=== PATIENT | female | born 1990 ===

== ENCOUNTER 2020-08-26 14:49 | Outpatient (CLI) | payer OTHER ==
[~2020-08-26] VITALS: Ht 157.5 cm; Wt 65.9 kg
[2020-08-26 15:10] VITALS: BP 103/55
[2020-08-26 16:04] LABS: APPEARANCE, URINE CLEAR (CLEAR); BACTERIA, URINE AUTO NEGATIVE (NEGATIVE); BILIRUBIN, URINE AUTO NEGATIVE (NEGATIVE); BLOOD, URINE BLOOD NEGATIVE (NEGATIVE); COLOR, URINE YELLOW (YELLOW); GLUCOSE, URINE (UA) AUTO NEGATIVE (NEGATIVE); KETONE, URINE AUTO NEGATIVE (NEGATIVE); LEUKOCYTE ESTERASE, URINE AUTO NEGATIVE (NEGATIVE); MUCUS, URINE SMALL (NEGATIVE); NITRITE, URINE AUTO NEGATIVE (NEGATIVE); PROTEIN, URINE AUTO NEGATIVE (NEGATIVE); RBC, URINE AUTO 0 /HPF (0-3); SPECIFIC GRAVITY URINE AUTO 1.013 (1.002-1.035); SQUAMOUS EPITHELIAL CELL UR AU 4 /HPF (0-6); UROBILINOGEN, URINE AUTO 0.2 mg/dL (0.0-2.0); WBC, URINE AUTO 1 /HPF (0-3)
[2020-08-26] MEDS ORDERED: PRENTAB9 PO (16:11)
--- NOTE | 2020-08-26 20:48 | IPNPDOC ---
Text Note Date of Service The patient was seen on 08/26/20. NOTE Labor and Delivery Triage Note: S: 30yo at 36w5d presents with c/o abdominal discomfort and pelvic pressure. Denies contraction, vaginal bleeding or LOF. Reports active movement. Visiting from [place]. O: vss, AF no ctx Cat 1 tracing, no contractions Gen: well appearing, NAD Abd: gravid, soft, nttp A/P: 30yo not in PTL, abdominal muscle strain reassuring status -Tylenol for discomfort -home with PTL precautions and FKCs. -f/u at next OB appt Cornelia Parada MD VS,Stacey, I+O VS, Stacey I+O Vital Signs Date Time Temp Pulse Resp B/P (MAP) Pulse Ox O2 Delivery O2 Flow Rate FiO2 08/26/20 15:10 98.6 83 16 103/55 (71) CORNELIA PARADA MD. August 26, 2020 20:48
== END 2020-08-26 17:38 | disposition home or self-care (01) ==
LOC: M LDO 14:49
PROVIDERS: ATTEND Obstetrics & Gynecology
DX: O26.893 Other specified pregnancy related conditions, third trimester (principal); R10.2 Pelvic and perineal pain; Z3A.36 36 weeks gestation of pregnancy